=== PATIENT | male | born 1970 | race Caucasian/White ===

== ENCOUNTER 2022-06-27 12:46 | Emergency (ER) | payer OTHER, SELFPAY ==
--- NOTE | ~2022-06-27 | CT_ITS ---
EXAMINATION: CT abdomen pelvis w con DATE: 06/27/2022 13:59 INDICATION: Mid abdominal pain, nausea and bloating TECHNIQUE: Computed tomography (CT) of the abdomen and pelvis was performed with 100 mL Omnipaque-350 intravenous contrast. Automated exposure control and iterative reconstruction technique were employe d. The dose-length product was 708.82 mGy-cm. COMPARISON: None FINDINGS: Lower lungs are clear. Heart size is normal. No pericardial or pleural effusion. Diffuse hepatic stea tosis with focal sparing along the gallbladder fossa. 2.5 cm lesion with subtle peripheral rim of enh ancement in the right hepatic lobe. Slightly more lateral in the right hepatic lobe is an additional approximately 1.2 cm ill-defined avidly enhancing lesion. Gallbladder, spleen, pancreas, bilateral ad renal glands and left kidney are normal. 1.8 cm excluding cyst at the lower pole of the right kidney. 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 There are multiple fluid-filled but not likely dilated loops of small bowel which gradually tapers distally with no transition point to suggest obstruction. No bowel wall thickening. Bladder is normal. Small amount of nonspecific asci yoselyn in the pelvis. No abscess or free intraperitoneal gas. No pathologically enlarged abdominal or pe lvic lymphadenopathy. Mild thoracic and lumbar spondylosis. IMPRESSION: 1. Small amount of nonspecific ascites in the pelvis. 2. Fluid throughout multiple loops of nondilated small bowel without transition point to suggest obst ruction. This could be seen with an ileus or gastroenteritis. 3. A couple indeterminate lesions in the liver, the larger measuring 2.4 cm with slightly lower atten uation than the surrounding fatty liver but greater than fluid attenuation in the smaller 1.2 cm avid ly enhancing lesion with poorly defined margins. Recommend further evaluation with pre and postcontra st MRI. Reviewed, dictated and finalized at location L. IMPRESSION: 1. Small amount of nonspecific ascites in the pelvis. 2. Fluid throughout multiple loops of nondilated small bowel without transition point to suggest obstruction. This could be seen with an ileus or gastroenteri tis. 3. A couple indeterminate lesions in the liver, the larger measuring 2.4 cm wit h slightly lower attenuation than the surrounding fatty liver but greater than fluid attenuation in the smaller 1.2 cm avidly enhancing lesion with poorly def ined margins. Recommend further evaluation with pre and postcontrast MRI.
[2022-06-27 12:50] VITALS: BP 136/93; PULSE 89; RESP 18; TEMP 36.9; O2SAT 99
[2022-06-27 13:20] LABS: Basophils Percent Auto 0.1 % (0.2-1.2); Eosinophils Percent Auto 0.3 % (0-4.4); Hematocrit 46.8 % (42.0-52.0); Hemoglobin 16.2 g/dL (14.0-18.0); Immature Granulocyte Absolute 0.01 K/mm3 (0.00-0.031); Immature Granulocyte Percent A 0.1 % (0-0.5); Lymphocytes Absolute Auto 1.18 K/mm3 (0.9-3.2); Lymphocytes Percent Auto 14.8 % (18.3-44.2); Mean Corpuscular HGB Conc 34.6 g/dl (32-36); Mean Corpuscular Hemoglobin 30.3 pg (26-34); Mean Corpuscular Volume 87.6 fl (80-100); Mean Platelet Volume 11.6 fl (7.4-10.4); Monocytes Absolute Auto 0.8 K/mm3 (0.1-0.6); Monocytes Percent Auto 10.2 % (2.6-8.5); Neutrophils Absolute Auto 5.9 K/mm3 (1.3-6.7); Neutrophils Percent Auto 74.5 % (45.5-73.1); Platelet Count Result 194 k/mm3 (150-375); Red Blood Count 5.34 M/mm3 (4.6-6.20); Red Cell Distribution Width 12.8 % (11.5-14.5)
--- NOTE | 2022-06-27 13:24 | ED.ABDPAIN ---
HPI - Abdominal Pain General Chief Complaint: Abdominal Pain Stated Complaint: abdominal pain Time Seen by Provider: 06/27/22 12:53 Source: patient Mode of arrival: ambulatory Limitations: no limitations History of Present Illness HPI narrative: This is a 52 year old male that presents to the ER for abdominal pain ongoing over the last 2 days. Reports mid abdominal pain and bloating. Associated with nausea and anorexia. Reports 1 episode of diarrhea. He has not taken anything for pain. Denies fever, vomiting, dysuria, or hematuria. Related Data Allergies Allergy/AdvReac Type Severity Reaction Status Date / Time No Known Allergies Allergy Verified 06/27/22 12:56 Review of Systems Review of Systems: CONSTITUTIONAL: Denies fever GASTROINTESTINAL: Reports abdominal pain, nausea and diarrhea. Denies vomiting GENITOURINARY: Denies dysuria or hematuria. All systems reviewed & are unremarkable except as noted in HPI and below PMFSH Past Medical History Medical History (Updated 06/27/22 @ 15:45 by Cristina Robles PA-C) No active medical problems Social History Social History (Updated 06/27/22 @ 13:37 by Cristina Robles PA-C) Smoking status: Never smoker Substance use: never Exam Narrative: GENERAL: Well-appearing, well-nourished, and in no acute distress. HEAD: Normocephalic, atraumatic. EYES: EOMI. CHEST: Clear to auscultation. No respiratory distress. No wheezes rales or rhonchi HEART: Regular rate and rhythm. No murmur heard. Normal peripheral pulses. ABDOMEN: Soft, nondistended, normal active bowel sounds. Tender to palpation throughout the mid abdomen, without guarding. No CVA tenderness EXTREMITIES: Normal range of motion. No edema. SKIN: Warm, dry, no rash. NEURO: No focal deficits. Alert and oriented x3. PSYCH: Normal mood and affect Course Course Emergency Course: Patient and family updated on work-up and agree with plan of care Vital Signs Vital signs: Vital Signs Temperature 98.5 F 06/27/22 12:50 Pulse Rate 89 06/27/22 12:50 Respiratory Rate 18 06/27/22 12:50 Blood Pressure 136/93 H 06/27/22 12:50 Pulse Oximetry 99 06/27/22 12:50 Oxygen Delivery Room Air 06/27/22 12:50 Temperature 98.5 F 06/27/22 12:50 Pulse Rate 73 06/27/22 14:54 Respiratory Rate 16 06/27/22 14:54 Blood Pressure 120/82 06/27/22 14:54 Pulse Oximetry 98 06/27/22 14:54 Oxygen Delivery Room Air 06/27/22 12:50 MDM - Abdominal Pain MDM Narrative Medical decision making narrative: Patient presents to the emergency department for mid abdominal discomfort, nausea and diarrhea. He is afebrile and nontoxic-appearing. His vitals are stable. CBC is without leukocytosis. Metabolic panel and lipase without concerning findings. Urine with some evidence of dehydration. No evidence for infection. CT scan of the abdomen and pelvis shows findings consistent with likely ileus due to gastroenteritis. Also shows some indeterminate lesions in his liver for which an outpatient MRI is recommended. Patient and family were updated on work-up. Patient has been tolerating p.o. intake. He has been having bowel movements. Feels appropriate for further outpatient evaluation and management. He was given warnings to return to the ER Differential Diagnosis Differential diagnosis: Likely constipation, diverticulitis, gastroenteritis and small bowel obstruction Lab Data Attestation: I reviewed the patient's lab results. 06/27/22 13:05 06/27/22 13:05 Labs: Lab Results 06/27/22 06/27/22 06/27/22 Range/Units 13:05 13:05 13:45 WBC 8.0 (4.5-10.0) K/mm3 RBC 5.34 (4.6-6.20) M/mm3 Hgb 16.2 (14.0-18.0) g/dL Hct 46.8 (42.0-52.0) % MCV 87.6 (80-100) fl MCH 30.3 (26-34) pg MCHC 34.6 (32-36) g/dl RDW 12.8 (11.5-14.5) % Plt Count 194 (150-375) k/mm3 MPV 11.6 H (7.4-10.4) fl Immature Gran % (Auto) 0.1 (0-0.5) % Neut % (
[2022-06-27] MEDS: ONDANSETRON INJ 4 MG/2 ML VIAL IV PUSH (13:30)
[2022-06-27 13:36] LABS: Alanine Aminotransferase 62 U/L (6-50); Albumin Level 4.8 g/dL (3.5-5.1); Alkaline Phosphatase 80 U/L (38-126); Anion Gap 7 mmol/L (8-16); Aspartate Amino Transferase 36 U/L (17-59); Bilirubin,Total 0.8 mg/dL (0.2-1.3); Blood Urea Nitrogen 12 mg/dL (9-20); Calcium 9.5 mg/dL (8.4-10.2); Carbon Dioxide 26 mmol/L (22-30); Chloride 103 mmol/L (98-107); Estimated CRCL calculation 80 ml/min; Estimated Glomerular Filt Rate > 60; Glucose 117 mg/dL (65-110); Lipase 49 U/L (23-300); Potassium 4.2 mmol/L (3.4-5.0); Sodium 136 mmol/L (137-145)
[2022-06-27 14:11] LABS: Appearance Urine Turbid (Clear); Bacteria Urine None Seen /hpf; Bilirubin Urine 1+ (Negative); Blood Urine Negative (Negative); Color Urine Dark Yellow (Yellow); Glucose Urine UA Negative (Negative); Hyaline Casts Urine Present /lpf; Ketones Urine Trace mg/dL (Negative); Leukocyte Esterase Ur Negative LEU/UL (Negative); Mucus Urine Present /lpf; Nitrate Urine Negative (Negative); Protein Urine 1+ mg/dL (Negative); Squamous Epithelial Cell Urine None seen /hpf (Few); WBC Urine 0-5 /hpf; pH Urine 5.5 (5.0-9.0)
[2022-06-27 14:29] LABS: Add Urine Microscopic? YES
[2022-06-27] MEDS: SODIUM CHLORIDE 0.9% IV 1,000 ML 999 ML IV CONT (14:53)
[2022-06-27 14:54] VITALS: BP 120/82; PULSE 73; RESP 16; O2SAT 98
[2022-06-27 15:43] VITALS: BP 116/82; PULSE 66; RESP 16; O2SAT 98
== END 2022-06-27 15:51 | disposition home or self-care (01) ==
PROVIDERS: Emergency Provider Physician Assistant; PCP Internal Medicine Infectious Disease
DX: K52.9 Noninfective gastroenteritis and colitis, unspecified (principal); K56.7 Ileus, unspecified; K76.9 Liver disease, unspecified
CPT/HCPCS: 36415; 74177; 80053; 81001; 83690; 85025; 96361; 96365; 96375; 99284; J0131; J2405; J7030; Q9967